=== PATIENT | female | born 1940 | race Caucasian/White ===

== ENCOUNTER → 2018-02-02 09:50 | Outpatient (CLI) | payer OTHER, SELFPAY ==
[2018-02-02 10:09] LABS: Bacteria Urine None Seen; RBC Urine None Seen (0-5/HPF)
[2018-02-02 10:47] LABS: Appearance Urine UA CLEAR; Bilirubin Urine UA NEGATIVE (NEGATIVE); Color Urine UA YELLOW; Glucose Urine UA NEGATIVE (Normal); Ketones Urine UA NEGATIVE (NEGATIVE); Leukocyte Esterase Urine UA 3+ (NEGATIVE); Nitrite Urine UA Negative (Negative); Occult Blood Urine UA NEGATIVE (Negative); Protein Urine UA NEGATIVE (Negative); Urobilinogen Urine UA 0.2 E.U./dL (0.2)
[2018-02-02 10:49] LABS: Add Manual Diff / Slide Review NO; Basophils Percent Auto 0.9 % (0-2); Eosinophils Percent Auto 0.8 % (2-4); Hematocrit 34.7 % (36-46); Hemoglobin 11.8 g/dL (12.0-16.0); Lymphocytes Percent Auto 15.2 % (25-40); Mean Corpuscular HGB Conc 33.8 % (30-36); Mean Corpuscular Hemoglobin 29.5 PG (26-34); Mean Corpuscular Volume 87.2 fL (80-100); Monocytes Percent Auto 6.3 % (3-14); Neutrophils Absolute Auto 6000 /uL (3000-5900); Neutrophils Percent Auto 76.8 % (50-75); Platelet Count 305 X10^3/uL (150-400); Red Blood Cell Count 3.99 X10^6/uL (4.0-5.2); Red Cell Distribution Width 13.4 % (11.6-14.8); White Blood Cell Count 7.9 X10^3/uL (4.5-11.0)
[2018-02-02 10:53] LABS: BUN Creatinine Ratio 29.1 (6-22); Blood Urea Nitrogen 32 mg/dL (7-17); Calcium 9.1 mg/dL (8.4-10.2); Carbon Dioxide 35 mmol/L (22-32); Chloride 101 mmol/L (98-107); Estimated Glomerular Filt Rate 48.4 mL/min (>60); Glucose 90 mg/dL (80-110); HEMOLYSIS < 15 (0-50); Potassium 3.4 mmol/L (3.4-5.1); Sodium 143 mmol/L (137-145); Uric Acid 5.8 mg/dL (2.5-6.2)
[2018-02-02 11:01] LABS: C-Reactive Protein Quant < 0.5 mg/dL (<1.0)
[2018-02-02 12:08] LABS: Erythrocyte Sedimentation Rate 16 MM/HR (0-20)
[2018-02-02 12:35] LABS: Culture Indicated Urine Cult Not Indicated; Renal Epithelial Cells Urine 5-10/HPF; Squamous Epithelial Cell Urine 5-10 /HPF; WBC Urine 10-30/HPF (0-5/HPF)
[2018-02-02 14:42] LABS: Hemoglobin A1C% w Est Avg Glu 5.7 % (4.0-6.0)
[2018-02-02 14:47] LABS: Rheumatoid Factor < 8.6 IU/mL (<12.0)
[2018-02-04 20:29] LABS: ANA Screen, IFA Negative (Negative)
== END ==
PROVIDERS: Visit Provider Orthopaedic Surgery
DX: Z01.818 Encounter for other preprocedural examination (principal); Z01.812 Encounter for preprocedural laboratory examination; N39.9 Disorder of urinary system, unspecified; R73.09 Other abnormal glucose; I10 Essential (primary) hypertension
CPT/HCPCS: 36415; 80048; 81001; 83036; 84550; 85025; 85651; 86038; 86140; 86430; 93005; 93010

== ENCOUNTER → 2018-04-26 10:10 | Outpatient (CLI) | payer OTHER, SELFPAY ==
[2018-04-26 10:19] LABS: Bacteria Urine None Seen; RBC Urine None Seen (0-5/HPF); WBC Urine None Seen (0-5/HPF)
[2018-04-26 10:29] LABS: Add Manual Diff / Slide Review NO; Basophils Percent Auto 1.2 % (0-2); Eosinophils Percent Auto 1.3 % (2-4); Hematocrit 39.6 % (36-46); Lymphocytes Percent Auto 15.3 % (25-40); Mean Corpuscular HGB Conc 32.9 % (30-36); Mean Corpuscular Hemoglobin 28.6 PG (26-34); Mean Corpuscular Volume 86.9 fL (80-100); Monocytes Percent Auto 8.1 % (3-14); Neutrophils Absolute Auto 6000 /uL (3000-5900); Neutrophils Percent Auto 74.1 % (50-75); Platelet Count 329 X10^3/uL (150-400); Red Blood Cell Count 4.56 X10^6/uL (4.0-5.2); White Blood Cell Count 8.1 X10^3/uL (4.5-11.0)
[2018-04-26 10:47] LABS: Hemoglobin A1C% w Est Avg Glu 5.8 % (4.0-6.0)
[2018-04-26 10:52] LABS: Blood Urea Nitrogen 30 mg/dL (7-17); Calcium 9.8 mg/dL (8.4-10.2); Carbon Dioxide 32 mmol/L (22-32); Chloride 98 mmol/L (98-107); Estimated Glomerular Filt Rate 54.1 mL/min (>60); Glucose 79 mg/dL (80-110); HEMOLYSIS < 15 (0-50); Potassium 3.4 mmol/L (3.4-5.1); Sodium 142 mmol/L (137-145); Uric Acid 5.2 mg/dL (2.5-6.2)
[2018-04-26 10:58] LABS: Culture Indicated Urine Cult Not Indicated; Squamous Epithelial Cell Urine 5-10 /HPF
[2018-04-26 11:00] LABS: Appearance Urine UA CLEAR; Bilirubin Urine UA NEGATIVE (NEGATIVE); Color Urine UA YELLOW; Glucose Urine UA NEGATIVE (Normal); Ketones Urine UA NEGATIVE (NEGATIVE); Leukocyte Esterase Urine UA NEGATIVE (NEGATIVE); Nitrite Urine UA NEGATIVE (Negative); Occult Blood Urine UA NEGATIVE (Negative); Protein Urine UA NEGATIVE (Negative); Rheumatoid Factor < 8.6 IU/mL (<12.0); Specific Gravity Urine UA 1.015 (1.000-1.035); Urobilinogen Urine UA 0.2 E.U./dL (0.2); pH Urine UA 7.5 (4.5-8.0)
== END ==
PROVIDERS: Family Provider Family Medicine; Visit Provider Orthopaedic Surgery
DX: Z01.818 Encounter for other preprocedural examination (principal); M25.551 Pain in right hip
CPT/HCPCS: 36415; 80048; 81001; 83036; 84550; 85025; 86430; 93005

== ENCOUNTER 2018-05-18 06:08 | Inpatient (IN) | payer OTHER, SELFPAY ==
[2018-05-03 10:57] VITALS: BMI 25.2
[2018-05-18] VITALS (12 sets, daily range): BP systolic 98–165; BP diastolic 44–68; PULSE 16–72; RESP 12–49; TEMP 36.1–36.6; O2SAT 94–100; BMI 25.6; BMI 28.6
--- NOTE | 2018-05-18 | DI.RAD.S_ITS ---
PROCEDURE: XR HIP W PEL IF DONE RT 2V INDICATIONS: RIGHT TOTAL HIP TECHNIQUE: 3 views of the hip were acquired. COMPARISON: [facility], , XR HIP W PEL IF DONE RT 2V, 05/18/2018, 14:40. FINDINGS: Spot fluoroscopic intraoperative images demonstrate right hip arthroplasty in expected alignment.Hardware appears intact. Dictated by: Nitin Arriola M.D. on 05/18/2018 at 14:57 Approved by: Nitin Arriola M.D. on 05/18/2018 at 14:58
--- NOTE | 2018-05-18 06:00 | DI.RAD.S_ITS ---
PROCEDURE: XR HIP W PEL IF DONE RT 2V INDICATIONS: post operative right hip TECHNIQUE: AP pelvis with lateral view(s) of the right hip(s). COMPARISON: [facility], CR, XR PELVIS WITH LATERAL HIP RIGHT, 01/09/2018, 10:56. [facility], CR, XR HIP W PEL IF DONE RT 2V, 05/18/2018, 10:26. FINDINGS: Bones: No fractures or dislocations. Right hip arthroplasty in expected postoperative alignment. Pelvic ring appears intact. No suspicious bony lesions. Background periarticular heterotopic ossification is unchanged Soft tissues: Overlying soft tissue postsurgical changes. IMPRESSION: Expected postoperative alignment of right hip arthroplasty. Dictated by: Nitin Arriola M.D. on 05/18/2018 at 15:00 Approved by: Nitin Arriola M.D. on 05/18/2018 at 15:01
[2018-05-18] MEDS: LACTATED RINGERS 1,000 ML 42 ML IV ×2 (06:54→10:21)
[2018-05-18] MEDS: VANCOMYCIN 1,000 MG/200 ML FROZ.PIGGY 200 MG IV (06:54)
[2018-05-18] MEDS: ACETAMINOPHEN 325 MG TABLET 975 MG PO ×3 (07:13→20:17)
[2018-05-18] MEDS: CELECOXIB 200 MG CAPSULE PO (07:14)
[2018-05-18] MEDS: PREGABALIN 75 MG CAPSULE PO (07:14)
--- NOTE | 2018-05-18 07:47 | PM.PREOP ---
Pre-operative Note Interval Note Pre-op Check: Yes History & Physical Reviewed by Physician and Yes Exam Performed Changes: No
--- NOTE | 2018-05-18 07:48 | PM.OP.1 ---
Operative Date/Time/Diagnoses Date of procedure: 05/18/18 Time of procedure: 07:48 Pre-op diagnosis: right hip OA, avn Post-op diagnosis: same Procedure & Clinicians Procedure: Right total hip arthroplasty anterior Same procedure as scheduled: Yes Indications: The patient has had progressively worsening right hip pain with radiographic changes consistent with arthritis. Non-operative management has failed and the patient has requested total hip replacement. The risks, benefits and alternatives to surgery were discussed with the patient prior to proceeding. Risks discussed included, but were not limited to, failure to relieve pain, leg length discrepancy, dislocation, stiffness, infection, nerve damage, deep venous thrombosis, pulmonary embolism, stroke, coma, heart attack, permanent paralysis and , as well as the potential need for eventual revision of the prosthetic. patient was noted to have severe avascular necrosis with marked abnormality of the femoral head and ossification in her hip abductors and marked stiffness preoperatively. 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 Some softening of the femoral bone, adequate positioning of the acetabulum and femoral component. Possible nondisplaced trochanteric injury noted on x-rays, no evidence of trochanteric instability, component instability or significant femoral fracture. Closure Type: primary Implants & Drains: [employer]hew R3 50 cup, 50 x 32 mm neutral poly, size 5 anthology, -3 by 32 femoral head Applied: drain(s) Estimated Blood Loss (mL): 250 Blood products transfused: none Procedure in detail: The patient was brought to the operating room. Patient was carefully positioned in the supine position. Time-out was performed and antibiotics were given. Anesthesia was induced. She was positioned in the on the table in order to allow hyperextension of the hip. Bilateral lower extremities were prepped and draped in a standard sterile fashion. An anterior right hip incision was made 1 fingerbreadth lateral to the anterior superior iliac spine and extended distally towards the greater trochanter. Dissection was carried out through skin and subcutaneous tissues. The skin and subcutaneous tissues were carefully injected with Lidocaine with epi. Superficial hemostasis was achieved. The fascia over the tensor fascia frank was defined and incised with a knife. Two Allis clamps were used to grasp the fascia. Tensor fascia frank was retracted laterally. A gelpi retractor was placed. Dissection was carried out down along the neck. The circumflex vessels were carefully identified and cauterized with the Aqua Mantis. There was good visualization of the femoral neck. She had an extremely stiff hip. She had about a 20 degree flexion contracture with further flexion to about 90?. The soft tissues were adherent to the underlying capsule. The tissues were meticulously mobilized. The tensor fascia frank was specifically gently mobilized off of the greater trochanter. She did have a component of a Abduction contracture. she could only be externally rotated about 10?. A Cobra was placed superior to the neck and the gluteus fibers were carefully stripped from that superior aspect of the capsule. A 2nd retractor was placed along the inferior aspect of the neck. The rectus insertion along the capsule was partially released. A 3rd retractor that was then gently placed over the rim of the acetabulum under the rectus. Capsule was carefully incised and released from the intertrochanteric line superior to the mid sagittal line and inferiorly to the mid sagittal line until the lesser trochanter was palpable. A tag stitch was placed both in the superior and inferior limb of the capsular insertion. Along the acetabulum capsule was also released up to the mid sagittal 12:00 position. A portion of the labrum was resected. There was severe adhesions in the lateral capsule especially along the insertion in the acetabulum. The lateral capsule was specifically released from the proximal femur to allow visualization of the greater trochanter sparing the gluteal muscles. A saw was used to perform an osteotomy at the level of the intertrochanteric line and the junction of the superior femoral neck leaving approximately 1 finger breath of residual inferior neck above the lesser trochanter. A 2nd cut was made along the femoral neck at the base of the head and a napkin ring of neck was removed. Corkscrew was placed in the femoral head and the head was removed. Retractors were then repositioned around the acetabulum. Residual labrum was resected and additional osteophytes were removed. Her capsule was severely contracted. We meticulously mobilized the capsule in order to allow the femur to be retractracted out of the way. A reamer that was 4 mm below the templated size was placed by hand in the acetabulum and it was reamed to centralize the acetabulum. It was then reamed up to 2 under the templated size and fluoroscopy was brought in to confirm the position of the reaming and depth of reaming. I reamed 1 under the anticipated size. A trial cup was placed and noted that it was appropriately sized and fluoroscopy confirmed position and depth. The component was open and inserted without difficulty fluoroscopic imaging was used to confirm that the cup had been adequately seated and was well positioned. She Had significant softening of her acetabulum and a screw was placed in order to further stabilize the cup. There was some superolateral deficiency but there was adequate coverage of the cup the cup was specifically tested and noted to be stable. Neutral poly trial liner was placed. The cup was tested and noted to be stable. Attention was then directed to the femur. The femur was gently hyperextended additional capsular release was performed in order to allow adequate visualization of the proximal femur with elevation of the femur. The capsule was severely contracted. I mobilized the capsule and specifically released to the bare spot on the greater trochanter and to the piriformis. A bone hook was used to mobilize The proximal small femur and to check the capsular release. She had an abduction contracture and it was difficult to adduct her past neutral. The tensor was also mobilize some proximally in order to allow safe retraction and further mobilization of the femur. Patient was placed in a hyperextended slightly adducted position with maximum external rotation. Box osteotome was used to check for any residual neck as well as sclerotic bone along the trochanter. [place] pepper was placed in the femur. the initial chili pepper was checked with fluoroscopy because it was difficult to insert. It was going into varus. The femur was elevated as much as possible and adduct did as much as possible as well as externally rotated. The chili pepper was used to specifically broach laterally in order to avoid varus. Additional broaching was performed. Canal finder was used to determine the alignment of the canal and position. Size 1 broach was placed. I checked both the position of the chili pepper as well as a size 1 broach to make sure that the femoral pathway was appropriate. The canal was then appropriately broached up to the templated size as long as there was adequate stability of the broach and serial advancement of the broach without excessive impingement. Specific attention was directed at avoiding varus attempting to direct the distal aspect of the broach more anteriorly and avoiding excessive anteversion. Trial reduction showed acceptable range of motion, good stability, no posterior impingement, roman catholic of leg length and appropriate lateral shuck. I also hyperflexed the hip and checked that there was no impingement anteriorly and there was good stability with flexion, abduction and internal rotation. the position of the broach was checked in neutral and internal and external rotation. On 1 radiographic view it looks like there might be a small crack in the greater trochanter. Evaluation of the bone did not show a displaced fracture but we did get the cerclage wire in case we needed it. Pulse lavage was used for irrigation. Final neutral poly was placed without difficulty. Marcaine and Exparel were injected. The stem was placed without difficulty. Repeat trial reduction and x-ray showed acceptable overall position, length, and no conclusive evidence of the femoral fracture. Final head was placed. Wound was meticulously irrigated with normal saline. The hip was reduced and additional Exparel and Marcaine were injected. additional fluoroscopy was used to make sure that there was no fracture and the bone was specifically tested and noted to be stable. The capsule was closed with interrupted nonabsorbable sutures. The fascia of the tensor was closed with interrupted and running Vicryl. No drain was placed. Any tensor fascia frank muscle that appeared to be contused or injured which was a minimal amount was carefully resected. Capsule around the tensor was injected with Exparel and Marcaine. The skin was closed with barbed stitches for the subcutaneous tissue and skin. We also used surgical glue. The wound was dressed sterilely. Brief Betadine soak was also used and was meticulously irrigated with normal saline. Patient was transferred to recovery room in satisfactory condition. Complications: none Condition: stable Disposition: Acute Care Plan for aftercare: The patient will be maintained on a standard total hip replacement protocol with weight bearing as tolerated and anterior hip precautions. The patient will receive Aspirin and sequential compression devices for DVT prophylaxis. The patient will be discharged home when safe for the home environment.
[2018-05-18] MEDS: CEFAZOLIN 2 GM/100 ML FROZ.PIGGY IV ×3 (08:00→20:17)
--- NOTE | 2018-05-18 08:38 | SUR.OPER ---
Supine, head on pillow, torso on pink pad positioner. Padded safety belt to torso. Iliac crest at flex of table. Gel roll under right hip. Both arms in foam wrap secured on arm boards <90 degrees abduction. Bilateral legs in surgeon control.
[2018-05-18] MEDS: LIDOCAINE 1% W/EPI INJ 20 ML INJ (08:49)
[2018-05-18] MEDS: BUPIVACAINE 0.25% W/ EPI VIAL 50 ML INJ (08:50)
[2018-05-18] MEDS: BUPIVACAINE LIPOSOME 266 MG/20 ML VIAL INJ (08:50)
[2018-05-18] MEDS: POVIDONE-IODINE 15 ML, SODIUM CHLORIDE 0.9% 250 ML TOP (08:51)
--- NOTE | 2018-05-18 14:02 | SUR.PHASEI ---
reported off to Kemi KELLY
--- NOTE | 2018-05-18 15:33 | PC.NURSE ---
POST OP ARRIVAL - To room at 1455, awake, states no discomfort, pt is able to move and flex r foot and leg, sensation present from foot to approx mid r thigh, aquacell dsg cdi, ra 98%, hr jennifer at 48, scds on.
[2018-05-18] MEDS: LACTATED RINGERS 1,000 ML 125 ML IV (15:36)
[2018-05-18] MEDS: INFLUENZA VACCINE 0.5 ML SYRINGE IM (17:02)
--- NOTE | 2018-05-18 18:00 | PT.IIE ---
Current Diagnoses Pain in right hip (05/18/18) Surgery Performed Operation Date: 05/18/18 07:45 Actual Procedures p Right Total Hip Arthroplasty/Anterior Approach(Right) - Mag Dickerson MD Surgical History (Last Updated 05/03/18 @ 11:16 by Miroslava Saucedo, RN) History of colonoscopy (Acute) Hx of adenoidectomy (Acute) Hx of eye surgery (Acute ~1999) Medical History (Last Updated 05/03/18 @ 11:14 by Miroslava Saucedo RN) Graves' disease (Acute) HTN (hypertension) (Acute) Heartburn (Acute) Hx of radioactive iodine thyroid ablation (Acute) Hypothyroidism (Acute) Pneumonia (Acute) Physical Therapy Inpatient Evaluation/Re-Eval M1 PT/OT-IP Prior Functional Status Start: 05/18/18 17:34 Freq: NEEDED Status: Active Protocol: Document 05/18/18 17:00 NFW (Rec: 05/18/18 18:00 NFW [id number]) Medical Review Prior Functional Status Medical History Reviewed Yes Diet/Fluid Consistency Regular Communication Pt alert, pleasant, answered all questions appropriately. Mobility and Gait Prior to admittance pt utilized SPC in ambulation. Activities of Daily Living and IADL's Prior to admittance, pt independent in ADLs and IADL's . Prior Functional Level (Other details) Pt's hobby is rubber stamping which she has been able to continue. Pt continued with regular activities around the home including cooking. Social History Household Members spouse Living Arrangements Half-Way Facility Number of Floors (Floors) One Floor Home Environment Standard Height Toilet Walk in Shower Built-In Shower Seat Home Equipment Front Wheel Walker Straight Cane Raised Toilet Seat w/Armrests Home Health Lpn Grab Bars In Shower Employment Status Retired M2 PT-IP Current Condition Start: 05/18/18 17:34 Freq: NEEDED Status: Active Protocol: Document 05/18/18 17:00 NFW (Rec: 05/18/18 18:00 NFW [id number]) Physical Therapy Current Condition Current Condition Evaluation Date 05/18/18 Treatment Diagnosis s/p Anterior TRE Rt. Onset Date 05/18/18 Precautions Anterior Hip Precautions No Hip Extension No Hip External Rotation Other Precautions Necessity of staying active, guided in HEP and walking program. Listening to when she is in pain or fatigued. Weight Bearing Status Weight Bearing Status Full Weight Bearing M3 PT-IP Subjective Start: 05/18/18 17:34 Freq: NEEDED Status: Active Protocol: Document 05/18/18 17:00 NFW (Rec: 05/18/18 18:00 NF [id number]) Subjective Physical Therapy Visit Type Type Initial Evaluation Visit Start Time 16:00 Visit Stop Time 17:00 Total Visit Minutes 60 Notes Pt's present during treatment. Pt and receptive with many questions. Number of HVAC PROJECT ENGINEER Visits 0 Physical Therapy Visit Comments Patient Comments Pleased that she has no pain. Patient Goals Home with . Therapy Pain Assessment Pain When Pain Assessed After Treatment Pain Present Pain Present Denied Pain M4 PT-IP Mobility and Gait Start: 05/18/18 17:34 Freq: NEEDED Status: Active Protocol: Document 05/18/18 17:00 NFW (Rec: 05/18/18 18:00 [facility] [id number]) PT-Bed Mobility Assessment Rolling Level of Assist Contact Guard Assistance 1 Person Assistance Supine to Sit Supine to Sit Minimal Assistance 1 Person Assistance Scooting Scooting to Edge of Bed Contact Guard Assistance PT-Transfer Assessment Sit to and From Stand Sit to and from Stand Contact Guard Assistance 1 Person Assistance Use of Upper Extremities Equipment Transfer Assistive Device Gait Belt Front Wheeled Walker Orthotic/Prosthetic Devices or Brace: No Transfers Transfer Destination Chair Bedside Commode Transfer Ability Level of Assist Minimal Assistance 1 Person Assistance Use of Upper Extremities Comments Mobility Comments VC prior to performing activity, motion executed nicely. Min assist in protecting RLE when going from supine to sitting at EOB. Gait Assessment Gait Gait Assistance Required: Contact Guard Assist 1 Person Assist Distance (Feet) 20 Able to Maintain Weight Bearing Status Yes During Gait Assistive Devices Assistive Device Gait Belt Front Wheeled Walker Orthotic/Prosthetic Devices or Brace: No Gait Deviations General Gait Pattern Decreased Stride Length Decreased Feet Clearance Factors Limiting Gait Function Factors Limiting Gait Function Decreased Activity Tolerance Decreased Sensation Decreased Strength Limited Range of Motion Comments Gait Comments Pt ambulated with LE in ER, R> L. Instructed on gradually bringing toes forward. PT-Balance Assessment Sitting Balance and Reactions Static Sitting Balance Ability Good Dynamic Sitting Balance Ability Good Standing Balance and Reactions Static Standing Balance Ability Good Dynamic Standing Balance Ability Good M5 PT-IP Objective Assessments Start: 05/18/18 17:34 Freq: NEEDED Status: Active Protocol: Document 05/18/18 17:00 NFW (Rec: 05/18/18 18:00 [facility] [id number]) Orientation Orientation/Cognition Level of Alertness Alert Language Function Ability No Deficits Noted Safety Awareness Understands Safety Issues Memory Description No Deficits Noted Gross Range of Motion Upper Extremity ROM Assessment Within Functional Limits Sensation Assessment Comments Sensation Comments Has some residual loss on sensation anterior and lateral aspect right hip. Muscle Tone Muscle Tone WNL Yes M6 PT-IP Treatment Start: 05/18/18 17:34 Freq: NEEDED Status: Active Protocol: Document 05/18/18 17:00 NFW (Rec: 05/18/18 18:00 [facility] [id number]) Physical Therapy Treatment Exercises Exercises Ankle Pumps Gluteal Sets Quad Sets Heel Slides Education Education Provided Precautions Weight Bearing Status Post-Op Packet Safety M7 PT-IP Assessment and Plan Start: 05/18/18 17:34 Freq: NEEDED Status: Active Protocol: Document 05/18/18 17:00 NFW (Rec: 05/18/18 18:00 [facility] [id number]) PT Summary Assessment and Plan Potential Rehabilitation Potential Excellent Status of Condition at Evaluation Evolving Summary Impairments Strength Sensation Bed Mobility Transfers Gait Activity Tolerance Progress Towards Goals Progressing Toward Goals Assessment Summary Pt s/p rt. Ant TRE this am. Pleased with little pain and her ability to move without pain. She is receptive and follows instructions closely. She was able to follow through with exercises with good form and pace. She has some residual post surgical loss of sensation in RLE mildly affecting her gait/ balance. BP before activity 135/69, Pulse 53, O2 96 BP sitting 139/58; Pulse 56; O2 96 BP post activity 125/77, Pulse 59; O2 95. Goals Bed Mobility Goal Independent Transfer Goal Standby Assistance Gait Goal Standby Assistance Front Wheel Walker Gait Distance 100' Days to Meet Goals 2 Frequency of Treatment Frequency Of Treatment Twice a Day Treatment Plan Physical Therapy Treatment Plan Bed Mobility Training Transfer Training Gait Training Therapeutic Exercise Balance Retraining Post Op Education Other Recommendations and Next Treatment Bed mobilities, ambulation, Focus exercise review. Recommendations To Nursing Amount of Assist Needed 1 Person Assist Discharge Recommendations PT Discharge Recommendations Home with Assistance Other Discharge Recommendations Home with . very supportive.
--- NOTE | 2018-05-18 18:37 | PC.NURSE ---
evening shift note- patient arrived to room at 1453 just prior to shift change. patient alert and oriented ahnd able to make needs known to staff. patient oriented to bed and bed controls, room, lights, bathroom, menu, phone, and call ward/tv remote. admission questions completed. physical assessment done. safety measures in place. call ward and phone within reach. will continue to monitor.
[2018-05-18] MEDS: DOCUSATE 100 MG CAPSULE PO (20:18)
[2018-05-18] MEDS: ASPIRIN EC 81 MG TABLET PO (20:18)
--- NOTE | 2018-05-18 23:49 | PC.NURSE ---
Deputy County Attorney Note: 2345: Awake, assisted to turn and repostion. Vital signs stable. Pt denies pain at this time. Dressing to rt hip is cdi. IV in place in lt hand, and LR is infusing at 125cc/hr. SCDs on.
[2018-05-19] MEDS: CEFAZOLIN 2 GM/100 ML FROZ.PIGGY IV (04:49)
[2018-05-19] MEDS: LACTATED RINGERS 1,000 ML 125 ML IV ×2 (04:55→08:46)
[2018-05-19] MEDS: LEVOTHYROXINE 100 MCG TABLET PO (04:59)
[2018-05-19 05:59] VITALS: BP 101/57; PULSE 68; RESP 16; TEMP 36.7; O2SAT 99
[2018-05-19 06:18] LABS: Hematocrit 29.2 % (36-46); Hemoglobin 9.9 g/dL (12.0-16.0)
[2018-05-19 07:56] VITALS: BP 108/55; PULSE 87; RESP 18; TEMP 36.6; O2SAT 99
[2018-05-19] MEDS: ACETAMINOPHEN 325 MG TABLET 975 MG PO ×2 (08:45→14:05)
[2018-05-19] MEDS: DOCUSATE 100 MG CAPSULE PO (08:45)
[2018-05-19] MEDS: ASPIRIN EC 81 MG TABLET PO (08:46)
--- NOTE | 2018-05-19 09:55 | PT.IPTN ---
Current Diagnoses Pain in right hip (05/18/18) Surgery Performed Operation Date: 05/18/18 07:45 Actual Procedures p Right Total Hip Arthroplasty/Anterior Approach(Right) - Mag Dickerson MD Physical Therapy Treatment Note M2 PT-IP Current Condition Start: 05/18/18 17:34 Freq: NEEDED Status: Active Protocol: Document 05/18/18 17:00 NFW (Rec: 05/18/18 18:00 NFW [id number]) Physical Therapy Current Condition Current Condition Evaluation Date 05/18/18 Treatment Diagnosis s/p Anterior TRE Rt. Onset Date 05/18/18 Precautions Anterior Hip Precautions No Hip Extension No Hip External Rotation Other Precautions Necessity of staying active, guided in HEP and walking program. Listening to when she is in pain or fatigued. Weight Bearing Status Weight Bearing Status Full Weight Bearing M3 PT-IP Subjective Start: 05/18/18 17:34 Freq: NEEDED Status: Active Protocol: Document 05/19/18 10:20 GGD (Rec: 05/19/18 11:05 GGD [id number]) Subjective Physical Therapy Visit Type Type Treatment Note Visit Start Time 09:55 Visit Stop Time 10:20 Total Visit Minutes 25 Number of LINEN CONTROLLER Visits 1 Physical Therapy Visit Comments Patient Comments Pt states she want's to go home today. Therapy Pain Assessment Pain When Pain Assessed During Mobility Pain Present Pain Present Pain Reported M4 PT-IP Mobility and Gait Start: 05/18/18 17:34 Freq: NEEDED Status: Active Protocol: Document 05/19/18 10:20 GGD (Rec: 05/19/18 11:05 GGD [id number]) PT-Bed Mobility Assessment Sit to Supine Sit to Supine Standby Assistance Bedrails Scooting Scooting to Edge of Bed Standby Assistance PT-Transfer Assessment Sit to and From Stand Sit to and from Stand Standby Assistance Use of Upper Extremities Equipment Transfer Assistive Device Gait Belt Front Wheeled Walker Orthotic/Prosthetic Devices or Brace: No Transfers Transfer Destination Bed Transfer Ability Level of Assist Contact Guard Assistance Use of Upper Extremities Gait Assessment Gait Gait Assistance Required: Contact Guard Assist 1 Person Assist Distance (Feet) 100 Able to Maintain Weight Bearing Status Yes During Gait Assistive Devices Assistive Device Gait Belt Front Wheeled Walker Orthotic/Prosthetic Devices or Brace: No Gait Deviations General Gait Pattern Decreased Stride Length Decreased Feet Clearance Factors Limiting Gait Function Factors Limiting Gait Function Decreased Activity Tolerance Decreased Sensation Decreased Strength Limited Range of Motion Comments Gait Comments Pt needed min cues for gait pattern M5 PT-IP Objective Assessments Start: 05/18/18 17:34 Freq: NEEDED Status: Active Protocol: Document 05/18/18 17:00 NFW (Rec: 05/18/18 18:00 NFW [id number]) Orientation Orientation/Cognition Level of Alertness Alert Language Function Ability No Deficits Noted Safety Awareness Understands Safety Issues Memory Description No Deficits Noted Gross Range of Motion Upper Extremity ROM Assessment Within Functional Limits Sensation Assessment Comments Sensation Comments Has some residual loss on sensation anterior and lateral aspect right hip. Muscle Tone Muscle Tone WNL Yes M6 PT-IP Treatment Start: 05/18/18 17:34 Freq: NEEDED Status: Active Protocol: Document 05/19/18 10:20 GGD (Rec: 05/19/18 11:05 GGD [id number]) Physical Therapy Treatment Exercises Exercises Ankle Pumps Gluteal Sets Quad Sets Heel Slides Education Education Provided Precautions Safety M7 PT-IP Assessment and Plan Start: 05/18/18 17:34 Freq: NEEDED Status: Active Protocol: Document 05/19/18 10:20 GGD (Rec: 05/19/18 11:05 GGD [id number]) PT Summary Assessment and Plan Summary Assessment Summary Pt progressing with mobility. She needed less assist, but needed cues for hip precautions. She safe for home D/C when medically stable. Frequency of Treatment Frequency Of Treatment Twice a Day Treatment Plan Other Recommendations and Next Treatment Bed mobilities, ambulation, Focus exercise review. Recommendations To Nursing Amount of Assist Needed 1 Person Assist Discharge Recommendations PT Discharge Recommendations Home with Assistance
--- NOTE | 2018-05-19 10:48 | PM.DS.1 ---
History of Present Illness Date Patient Seen: 05/19/18 Time Patient Seen: 10:48 Chief complaint: total hip arthroplasty right [id number] Narrative: Hospital day 2, postop day 1 following right anterior total hip arthroplasty by Dr. Dickerson. Patient is thus with path patient. Doing well at this time. States she did get some rest last night. Using Tylenol for pain. Patient is desiring to go home today. Discharge Providers Date of admission: 05/18/18 06:08 Consults: 05/18/18 06:00 Consult to Anesthesiology Routine Comment: Consulting Provider: Anesthesiologist Reason for consultation: Regional block for post operative pain control 05/18/18 15:01 Consult to Discharge Planning Routine Comment: Consult to Physical Therapy Evaluate & Treat Comment: Physician Instructions: post op TRE protocol Consult to Respiratory Therapy Evaluate & Treat Comment: Physician Instructions: Evaluate and treat Discharge provider: Black Zavaleta PA-C Discharge Date: 05/19/18 Summary Discharge Diagnosis: Status post right anterior total hip arthroplasty Hospital Course: Patient brought to hospital on 05/18/2018 for above-noted surgery. She remained stable postoperatively. Progressed with physical therapy. Pain control with Tylenol. She is scheduled to go to [facility] PT Status at Discharge Cognitive/behavioral status at discharge: Alert oriented no acute distress. Functional status at discharge: uses cane/walker Overall status at discharge: patient is progressing back to baseline Time Spent with Patient Less than 30 minutes Exam Vital Signs (past 8 hours): - 05/19/18 05:59 05/19/18 07:56 Temperature 98.0 F 97.8 F Pulse Rate 68 87 Respiratory Rate 16 18 Blood Pressure 101/57 L 108/55 L Pulse Oximetry 99 99 Oxygen Delivery Method Room Air Oxygen Flow Rate 0 Narrative Exam Narrative: Legs. Aquacel dressing to right anterior hip is dry without drainage or inflammation. No calf pain or swelling. Pulses symmetrical. Patient able to fire her quad. Objective Labs Result Diagrams: 05/19/18 05:45 Labs: Laboratory Results - last 24 hr 05/19/18 05:45 Hgb 9.9 L Hct 29.2 L Discharge Plan Discharge Plan Patient Disposition: Home Discharge comment: Discharged home today after cleared by physical therapy. Patient is a sweet path patient and does have pain medications at home. Schedule to go to [facility] PT. Discharge Med Rec/Prescriptions Prescriptions: New acetaminophen 325 mg Tablet 975 mg PO TID Qty: 30 RF: 0 aspirin 81 mg Tablet,Delayed Release (Dr/Ec) 81 mg PO BID Qty: 60 RF: 0 Continue triamterene-hydrochlorothiazid 75-50 mg Tablet 1 tab PO DAILY RF: 0 vit C-vit [id number]-ggc-om-3 [Ocuvite] 147-14-5-150 vi-hmqi-gj-mg Capsule 1 cap PO BID RF: 0 levothyroxine 100 mcg Capsule 100 mcg PO DAILY RF: 0 naproxen sodium [Aleve] 220 mg Capsule 220 mg PO BID PRN (Reason: pain) RF: 0 multivitamin Tablet 1 tab PO DAILY RF: 0 vitamin B complex [B-Complex] Tablet 1 tab PO DAILY RF: 0 Discontinued aspirin 81 mg Tablet,Delayed Release (Dr/Ec) 81 mg PO BEDTIME RF: 0 Provider Discharge Instructions Diet: Diet as Tolerated Activity: Ambulate as tolerated. Patient given anterior total hip precautions. Other treatments: Take aspirin 81 mg 1 b.i.d. x4 weeks postop. Skin/Wound/Dressing Care Report to your healthcare provider any signs of infection, such as:: chills, fever, night sweats, increased pain, unusual drainage and unusual redness Visit Report/Discharge Packet Instructions: DI for Hip Replacement Discharge Data Attending Provider: Mag Dickerson Admit Date/Time: 05/18/18 06:08 Quality VTE Deep Vein Thrombosis/Pulmonary Embolism Present on Admission: No
--- NOTE | 2018-05-19 10:51 | P.DS_ITS ---
History of Present Illness Date Patient Seen: 05/19/18 Time Patient Seen: 10:48 Chief complaint: total hip arthroplasty right [id number] Narrative: Hospital day 2, postop day 1 following right anterior total hip arthroplasty by Dr. Dickerson. Patient is thus with path patient. Doing well at this time. States she did get some rest last night. Using Tylenol for pain. Patient is desiring to go home today. Discharge Providers Date of admission: 05/18/18 06:08 Consults: 05/18/18 06:00 Consult to Anesthesiology Routine Comment: Consulting Provider: Anesthesiologist Reason for consultation: Regional block for post operative pain control 05/18/18 15:01 Consult to Discharge Planning Routine Comment: Consult to Physical Therapy Evaluate & Treat Comment: Physician Instructions: post op TRE protocol Consult to Respiratory Therapy Evaluate & Treat Comment: Physician Instructions: Evaluate and treat Discharge provider: Black Zavaleta PA-C Discharge Date: 05/19/18 Summary Discharge Diagnosis: Status post right anterior total hip arthroplasty Hospital Course: Patient brought to hospital on 05/18/2018 for above-noted surgery. She remained stable postoperatively. Progressed with physical therapy. Pain control with Tylenol. She is scheduled to go to [facility] PT Status at Discharge Cognitive/behavioral status at discharge: Alert oriented no acute distress. Functional status at discharge: uses cane/walker Overall status at discharge: patient is progressing back to baseline Time Spent with Patient Less than 30 minutes Exam Vital Signs (past 8 hours): - 05/19/18 05:59 05/19/18 07:56 Temperature 98.0 F 97.8 F Pulse Rate 68 87 Respiratory Rate 16 18 Blood Pressure 101/57 L 108/55 L Pulse Oximetry 99 99 Oxygen Delivery Method Room Air Oxygen Flow Rate 0 Narrative Exam Narrative: Legs. Aquacel dressing to right anterior hip is dry without drainage or inflammation. No calf pain or swelling. Pulses symmetrical. Patient able to fire her quad. Objective Labs Result Diagrams: 05/19/18 05:45 Labs: Laboratory Results - last 24 hr 05/19/18 05:45 Hgb 9.9 L Hct 29.2 L Discharge Plan Discharge Plan Patient Disposition: Home Discharge comment: Discharged home today after cleared by physical therapy. Patient is a sweet path patient and does have pain medications at home. Schedule to go to [facility] PT. Discharge Med Rec/Prescriptions Prescriptions: New acetaminophen 325 mg Tablet 975 mg PO TID Qty: 30 RF: 0 aspirin 81 mg Tablet,Delayed Release (Dr/Ec) 81 mg PO BID Qty: 60 RF: 0 Continue triamterene-hydrochlorothiazid 75-50 mg Tablet 1 tab PO DAILY RF: 0 vit C-vit [id number]-nkwfwp-asx-om-3 [Ocuvite] 563-54-7-150 ib-omim-cc-mg Capsule 1 cap PO BID RF: 0 levothyroxine 100 mcg Capsule 100 mcg PO DAILY RF: 0 naproxen sodium [Aleve] 220 mg Capsule 220 mg PO BID PRN (Reason: pain) RF: 0 multivitamin Tablet 1 tab PO DAILY RF: 0 vitamin B complex [B-Complex] Tablet 1 tab PO DAILY RF: 0 Discontinued aspirin 81 mg Tablet,Delayed Release (Dr/Ec) 81 mg PO BEDTIME RF: 0 Provider Discharge Instructions Diet: Diet as Tolerated Activity: Ambulate as tolerated. Patient given anterior total hip precautions. Other treatments: Take aspirin 81 mg 1 b.i.d. x4 weeks postop. Skin/Wound/Dressing Care Report to your healthcare provider any signs of infection, such as:: chills, fever, night sweats, increased pain, unusual drainage and unusual redness Visit Report/Discharge Packet Instructions: DI for Hip Replacement Discharge Data Attending Provider: Mag Dickerson Admit Date/Time: 05/18/18 06:08 Quality VTE Deep Vein Thrombosis/Pulmonary Embolism Present on Admission: No
--- NOTE | 2018-05-19 10:57 | PC.NURSE ---
Addendum entered by Meme Dias R.N. 05/19/18 14:43: DC - after phys therapy, reviewed dc instructions with pt and spouse, no scripts, given 975mg tylenol prior to discharge for mild discomfort, discussed tylenol limitations with pt and spouse, assisted with clothing, crop quantitative geneticist tsf to wc and taken to spouse's car. Original Note: Addendum entered by Meme Dias R.N. 05/19/18 13:02: MS/PAIN - spouse arrived, pt rosio lunch, continues w/pain 2 on scale 0/10 and up to bsc w/fww, pericare performed, brief changed and ret to bed, spouse req addl PT session after lunch for reinforcement, phys therapy notified. Original Note: AM NOTE - assist x 1 person w/fww up to chair for breakfast, described r hip discomfort as stiffness, +cms and no numbness rle, aquacell dsg cdi, no nausea, trace pedal edema, given scheduled tylenol and discussed pain mgt and medications available, phys therapy in and cleared.
[2018-05-19 11:15] VITALS: BP 122/52; PULSE 70; RESP 18; TEMP 36.7; O2SAT 99
--- NOTE | 2018-05-19 13:30 | PT.IPTN ---
Current Diagnoses Pain in right hip (05/18/18) Surgery Performed Operation Date: 05/18/18 07:45 Actual Procedures p Right Total Hip Arthroplasty/Anterior Approach(Right) - aMg Dickerson MD Physical Therapy Treatment Note M2 PT-IP Current Condition Start: 05/18/18 17:34 Freq: NEEDED Status: Active Protocol: Document 05/18/18 17:00 NFW (Rec: 05/18/18 18:00 NFW [id number]) Physical Therapy Current Condition Current Condition Evaluation Date 05/18/18 Treatment Diagnosis s/p Anterior TRE Rt. Onset Date 05/18/18 Precautions Anterior Hip Precautions No Hip Extension No Hip External Rotation Other Precautions Necessity of staying active, guided in HEP and walking program. Listening to when she is in pain or fatigued. Weight Bearing Status Weight Bearing Status Full Weight Bearing M3 PT-IP Subjective Start: 05/18/18 17:34 Freq: NEEDED Status: Active Protocol: Document 05/19/18 13:30 GGD (Rec: 05/19/18 14:41 GGD [id number]) Subjective Physical Therapy Visit Type Type Treatment Note Visit Start Time 13:15 Visit Stop Time 13:30 Total Visit Minutes 15 Number of PLUMBERS AND TOP HELPERS Visits 2 Physical Therapy Visit Comments Patient Comments Pt feeling better. Therapy Pain Assessment Pain When Pain Assessed During Mobility Pain Present Pain Present Pain Reported M4 PT-IP Mobility and Gait Start: 05/18/18 17:34 Freq: NEEDED Status: Active Protocol: Document 05/19/18 13:30 GGD (Rec: 05/19/18 14:41 GGD [id number]) PT-Bed Mobility Assessment Supine to Sit Supine to Sit Standby Assistance Bedrails Scooting Scooting to Edge of Bed Standby Assistance PT-Transfer Assessment Sit to and From Stand Sit to and from Stand Standby Assistance Use of Upper Extremities Equipment Transfer Assistive Device Gait Belt Front Wheeled Walker Orthotic/Prosthetic Devices or Brace: No Transfers Transfer Destination Bed Transfer Ability Level of Assist Contact Guard Assistance Use of Upper Extremities Gait Assessment Gait Gait Assistance Required: Contact Guard Assist 1 Person Assist Distance (Feet) 50 Able to Maintain Weight Bearing Status Yes During Gait Assistive Devices Assistive Device Gait Belt Front Wheeled Walker Orthotic/Prosthetic Devices or Brace: No Gait Deviations General Gait Pattern Decreased Stride Length Decreased Feet Clearance Factors Limiting Gait Function Factors Limiting Gait Function Decreased Activity Tolerance Decreased Sensation Decreased Strength Limited Range of Motion Comments Gait Comments Pt needed min cues for gait pattern M5 PT-IP Objective Assessments Start: 05/18/18 17:34 Freq: NEEDED Status: Active Protocol: Document 05/18/18 17:00 NFW (Rec: 05/18/18 18:00 NFW [id number]) Orientation Orientation/Cognition Level of Alertness Alert Language Function Ability No Deficits Noted Safety Awareness Understands Safety Issues Memory Description No Deficits Noted Gross Range of Motion Upper Extremity ROM Assessment Within Functional Limits Sensation Assessment Comments Sensation Comments Has some residual loss on sensation anterior and lateral aspect right hip. Muscle Tone Muscle Tone WNL Yes M6 PT-IP Treatment Start: 05/18/18 17:34 Freq: NEEDED Status: Active Protocol: Document 05/19/18 13:30 GGD (Rec: 05/19/18 14:41 GGD [id number]) Physical Therapy Treatment Exercises Exercises Ankle Pumps Gluteal Sets Quad Sets Heel Slides Education Education Provided Precautions M7 PT-IP Assessment and Plan Start: 05/18/18 17:34 Freq: NEEDED Status: Active Protocol: Document 05/19/18 13:30 GGD (Rec: 05/19/18 14:41 GGD [id number]) PT Summary Assessment and Plan Summary Assessment Summary Pt improving with mobility. She needed less assist for bed mobility. She did need cues with gait for hip precautions. Pt safe for D/C home when medically stable. Frequency of Treatment Frequency Of Treatment Twice a Day Treatment Plan Other Recommendations and Next Treatment Bed mobilities, ambulation, Focus exercise review. Recommendations To Nursing Amount of Assist Needed 1 Person Assist Discharge Recommendations PT Discharge Recommendations Home with Assistance
--- NOTE | 2018-05-19 13:55 | CM.DANOTE ---
Discharge Planning/Care Management CM Discharge Assessment Start: 05/19/18 13:52 Freq: Status: Active Protocol: Document 05/19/18 13:52 (Rec: 05/19/18 13:55 [id number]) Discharge Planning Assessment Assigned Rn Family Practice SANYA Abdullahi Advance Directives? Yes Advance Directives on File No History Provided By Patient Medical Record Has Patient been admitted in last 30 No days? Prior Living Arrangements Intermediate Facility Household Members spouse Type of transporation used prior to Drives own vehicle admit Independent with ADL's Yes Is patient alert and oriented? Yes Caregiver for Another No Patient/Family Preference OP PT Therapy Barriers to Discharge No Discharge Plan Home Community Services Physical Therapy Whiteboard Updated in Patient Room with Yes name and ext. # of Rn Family Practice Comment Patient to discharge home today. Patient agreeable and will have spouse provide transportation. Please Provide Date Initial DC 05/19/18 Assessment Was Performed Pre-Anesthesia Assessment Start: 05/03/18 10:57 Freq: Status: Complete Protocol: Document 05/03/18 10:57 CAB (Rec: 05/03/18 11:30 CAB [id number]) Pre-Anesthesia Assessment Patient Information Reviewed Via Phone Assessment Assessment Completed With Patient Lab Results BMP/CMP CBC EKG Urinalysis Comment Labs @ [facility] 04/28/18, EKG @ [facility] Primary Care Provider Cyndee Laureano Seen Specialist in Last 12 Months Yes Specialist Seen Orthopedist Other Comment GI Primary Language Slovak Height 170.18 cm Weight 73.028 kg Body Mass Index (BMI) 25.2 Hearing Ability Normal Visual Assist Magnifying Glass Dentition Type Teeth, Natural Present Barriers to Learning None Hx Anesthesia Reactions No Hx Family Anesthesia Reaction No Hx Malignant Hyperthermia No Hx Blood Transfusions No Anesthesia Review Requested No Biomed Tech No alcohol intake frequency a few times a week Smoking Status Never smoker Substance Use Type does not use Pain Present Pain Reported Musculoskeletal Symptoms Abnormal Gait Difficulty Walking Joint Pain History of Falling (Recent or History of No ) Patient is completely paralyzed or No completely immobile Prosthesis or Orthotic Device Cane Mental Status Oriented to own ability Is patient on oxygen? No Does patient have CORREIA/SOB No Hx Sleep Apnea No Suspected Sleep Apnea No Currently Taking a Beta Shahid No Can You Climb a Flight of Stairs Without Yes SOB Hx Chest Pain No Hx SOB No Hx Syncope or Dizziness No Anti-Coagulant Therapy No Has a Section Chief No Cardiac Testing No Hx Pacemaker/ICD No Pacemaker Rep Required? No Cardiac Clearance Received Not Applicable Diet Type At Home Regular dysphagia No Bladder Pattern Nocturia Urinary Catheter Present No Hx Urinary Self Catheterization No Diabetes No Patient No Lactating No Hx Drug Resistant Organism No Presence of External or Internal Medical No Devices Have you traveled outside the [facility] States in the last 30 days? Marital Status Lives With spouse Prior Living Arrangements House Number of Floors (Floors) One Floor Number of Stairs To Enter/Railing? none Support System Child/Children Angélica/God Friend(s) Spouse Does the Patient Have Assistance After Yes Surgery Patient Discharge Plan Description Return Home Comment Pt advised same day or next day length of stay per surgeon 's office Feels Safe in Current Environment Yes Been Physically Hurt or Threatened By a No Person in Current Environment Do you have thoughts of harming yourself None or others? Are you currently considering suicide? No Do you have a plan to hurt yourself or No Plan others? Do You Have Any Spiritual Beliefs That No May Affect Your HC Choices? Do You Have Any Cultural Practices That No May Affect Your HC Choices? Spiritual Referral None Comment Caodaism Who Can We Speak to About Patient's Care Family, friends Identifying Code for Release of Patient Declines to issue Information Health Care Proxy/Next of Kin Marc () Health Care Proxy Emergency Contact Name Marc () Emergency Contact Advance Directives? Yes: Living will Advance Directives on File No Requested Patient Bring Advanced Yes Directives DOS Power of Industrial Gas Servicer Supervisor Yes Power of Industrial Gas Servicer Supervisor Name Marc () Power of Industrial Gas Servicer Supervisor PAC Instructions Do not shave/clip surgical site Durable medical equipment Medications to take/avoid Nasal antibiotic No ETOH/petroleum product on skin DOS NPO Pre-surgical wash Sturdy shoes/comfortable clothes Do not bring valuables and remove jewelry
== END 2018-05-19 14:48 | disposition home or self-care (01) | DRG 470 ==
PROVIDERS: Admitting Provider Orthopaedic Surgery; Family Provider Family Medicine; Visit Provider Orthopaedic Surgery
PROC: 0SR902Z Replacement of Right Hip Joint with Metal on Polyethylene Synthetic Substitute, Open Approach (ICD-10-PCS; CPT 27130; principal; 2018-05-18 07:45)
DX: M16.11 Unilateral primary osteoarthritis, right hip (principal); M87.851 Other osteonecrosis, right femur; I10 Essential (primary) hypertension; E05.00 Thyrotoxicosis with diffuse goiter without thyrotoxic crisis or storm; M81.0 Age-related osteoporosis without current pathological fracture
CPT/HCPCS: 36415; 73502; 85014; 85018; 90471; 90656; 97110; 97116; 97161; 97530; C1776; C9290; J0690; J1100; J2250; J2274; J2405; J2704; J3370; Q2038

== ENCOUNTER → 2019-11-11 15:00 | Outpatient (CLI) | payer OTHER, SELFPAY ==
[2018-05-18 15:42] VITALS: BMI 28.6
[2019-11-12 03:17] LABS: COVID19 Sendout Not Detected (Not Detect)
== END ==
PROVIDERS: Family Provider Family Medicine; Visit Provider Physician Assistant
DX: Z01.812 Encounter for preprocedural laboratory examination (principal)
CPT/HCPCS: 87635

== ENCOUNTER 2019-11-14 07:25 | Day surgery (SDC) | payer OTHER, SELFPAY ==
[2018-05-18 15:42] VITALS: BMI 28.6
--- NOTE | 2019-11-11 15:23 | PM.PREOP ---
Pre-operative Note Interval Note History & Physical reviewed/Exam performed by Physician: Yes Changes to H&P: No
--- NOTE | 2019-11-11 15:24 | P.OP_ITS ---
Operative Date/Time/Diagnoses Date of procedure: 11/14/19 Time of procedure: 08:45 Procedure & Clinicians Procedure: Preoperative diagnoses: 1. 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 2. Graves disease stable. 3. Hypothyroidism. 4. History of strabismus surgery with a right inferior rectus recession January 06, 2000. 5. History of lacrimal punctal dilation and irrigation with 3 snip procedure right eye October 07, 2015. 6. Hypertension. 7. Right total knee replacement 2017. 8. Glaucoma suspect. Postoperative diagnoses: 1. Cataract removed by phacoemulsification with placement of posterior chamber intraocular lens. Procedure: Phacoemulsification with posterior chamber intraocular lens implant Surgeon: Gladys Moreira MD Complications: None Specimen: None Implant: ZCBOO+19.5 Blood loss: None Anesthesia: Retrobulbar with monitored standby Description of procedure: Patient presents with a complaint of decreased vision due to cataract which is affecting activities of daily living. She has significant cataract which has been increased due to delayed surgery and has been waiting approval from the [employer] to proceed with surgery The patient wants surgery to improve vision. She is medically stable and has tested negative for the virus. She does not have active double vision but she does have Graves disease and treated hypothyroidism. The patient was taken to the operating room and given IV sedation. A retrobulbar block consisting of 6 cc of 2% xylocaine without epinephrine mixed half and half with 0.5% Marcaine with 1 cc of hyaluronidase added is placed between the medial and lateral 1/3 of the inferior orbital rim. The eye is manually massaged for 30 sec, prepped using Betadine solution, and draped in the usual sterile fashion. Temporal approach was made, a 1 mm side-port incision was made 90? from the proposed clear corneal incision position. Phenylephrine 1.5% mixed with 1% xylocaine 0.2 cc was placed into the anterior chamber. Viscoat followed by Lety was then placed. A 2.6 mm clear incision with a 2.6 mm blade was placed. A 360 degree capsulorrhexis style capsulotomy was then performed with a cystitome needle on a Healon. Hydrodelineation and hydrodissection were performed. The phacoemulsification unit is introduced, and sculpting notice used to groove the central lens. It is then removed in chopping mode. Epi nucleus is removed with epinuclear mode and irrigation aspiration was used to remove the peripheral cortex. The posterior capsule is polished. The intraocular lens is selected, inspected, power confirmed, and placed in the posterior chamber. The wound was stromally hydrated and tested for leaks, there was none and it was left sutureless. Vigamox 0.1 cc was placed into the anterior chamber. Kenalog 0.2 cc was placed in the superior subconjunctival space. A drop of antibiotic and was placed and the eye was patched and shielded. The patient was stable and returned to the recovery room in excellent condition. Dictated by: Gladys Moreira MD Copy to: [facility] Same procedure as scheduled: Yes
[2019-11-14] MEDS: PROPARACAINE 0.5% OPHTH SOL 2 DROPS EYE-OP (07:56)
[2019-11-14] MEDS: CATARACT EYE COMPOUND (10 DROPS/SYRINGE) 3 DROPS EYE-OP (08:00)
[2019-11-14 08:02] VITALS: BP 163/74; PULSE 73; RESP 14; TEMP 36.6; O2SAT 100
[2019-11-14 08:07] VITALS: BMI 27.0
--- NOTE | 2019-11-14 09:17 | SUR.OPER ---
Supine on eye stretcher, head on extension cradle secured with tape. Arms tucked at sides with blanket. Pillow under knees.
[2019-11-14] MEDS: ERYTHROMYCIN OPHTH 1 GM OINT 1 APPLIC EYE-RIGHT (09:18)
[2019-11-14] MEDS: LIDOCAINE 2% 4 ML, BUPIVACAINE 0.5% (PF) 4 ML, HYALURONIDASE 150 UNIT INJ (09:19)
[2019-11-14] MEDS: MOXIFLOXACIN INJ 5 MG/ML VIAL EYE-OP (09:19)
[2019-11-14] MEDS: PHENYLEPHRINE/LIDOCAINE VIAL (OR) 0.2 ML EYE-OP (09:19)
[2019-11-14] MEDS: HYALURONATE SODIUM 10 MG/ML SYRINGE INJ (09:20)
[2019-11-14] MEDS: TRIAMCINOLONE 50 MG/5 ML VIAL INJ (09:20)
[2019-11-14] MEDS: CHONDROIDTIN/SOD HYALURONATE 1.05 ML SYRINGE INTRAOCULA (09:20)
[2019-11-14] MEDS: BALANCED SALT IRRIG SOLN NO.2 500 ML, EPINEPHrine 1 MG IRR (09:21)
[2019-11-14 09:45] VITALS: BP 147/66; PULSE 62; RESP 14; TEMP 36.1; O2SAT 100
== END 2019-11-14 10:05 | disposition home or self-care (01) ==
LOC: OR 07:28
PROVIDERS: Family Provider Family Medicine; PCP Nurse Practitioner; Referring Provider Ophthalmology; Visit Provider Ophthalmology
PROC: (CPT 66984; principal; 2019-11-14 08:45)
DX: H25.811 Combined forms of age-related cataract, right eye (principal); E05.00 Thyrotoxicosis with diffuse goiter without thyrotoxic crisis or storm; E03.9 Hypothyroidism, unspecified; I10 Essential (primary) hypertension; H40.009 Preglaucoma, unspecified, unspecified eye
CPT/HCPCS: 66984; J0171; J2250; J2704; J3301; J3470

== ENCOUNTER → 2019-11-25 14:18 | Outpatient (CLI) | payer OTHER, SELFPAY ==
[2018-05-18 15:42] VITALS: BMI 28.6
[2019-11-26 08:58] LABS: COVID19 Sendout NOT DETECTED (Not Detect)
== END ==
PROVIDERS: Family Provider Family Medicine; PCP Nurse Practitioner; Visit Provider Physician Assistant
DX: Z01.812 Encounter for preprocedural laboratory examination (principal)
CPT/HCPCS: 87635

== ENCOUNTER 2019-11-28 07:23 | Day surgery (SDC) | payer OTHER, SELFPAY ==
[2018-05-18 15:42] VITALS: BMI 28.6
--- NOTE | 2019-11-25 11:24 | PM.PREOP ---
Pre-operative Note COVID-19 COVID-19 status: Negative Interval Note History & Physical reviewed/Exam performed by Physician: Yes Changes to H&P: No
--- NOTE | 2019-11-25 11:26 | PM.OP.1 ---
Operative Date/Time/Diagnoses Date of procedure: 11/28/19 Time of procedure: 08:45 Procedure & Clinicians Procedure: Preoperative diagnoses: 1. Left significant nuclear sclerotic and cortical cataract. 2. Graves disease with previous strabismus. 3. HTN Postoperative diagnoses: 1. Cataract removed by phacoemulsification with placement of posterior chamber intraocular lens. Procedure: Phacoemulsification with posterior chamber intraocular lens implant Surgeon: Gladys Moreira MD Complications: None Specimen: None Implant: ZCBOO+19.5 Blood loss: None Anesthesia: Retrobulbar with monitored standby Description of procedure: Patient presents with a complaint of decreased vision due to cataract which is affecting activities of daily living. The patient wants surgery to improve vision. She has had successful right eye surgery 2 weeks ago and was Covid 19 negative at that time. She understands extra risk of having surgery during the Covid 19 epidemic and has been retested and continues to be negative. She wishes to proceed with surgery with a distance target. The patient was taken to the operating room and given IV sedation. A retrobulbar block consisting of 6 cc of 2% xylocaine without epinephrine mixed half and half with 0.5% Marcaine with 1 cc of hyaluronidase added is placed between the medial and lateral 1/3 of the inferior orbital rim. The eye is manually massaged for 30 sec, prepped using Betadine solution, and draped in the usual sterile fashion. Temporal approach was made, a 1 mm side-port incision was made 90? from the proposed clear corneal incision position. Phenylephrine 1.5% mixed with 1% xylocaine 0.2 cc was placed into the anterior chamber. Viscoat followed by Lety was then placed. A 2.6 mm clear incision with a 2.6 mm blade was placed. A 360 degree capsulorrhexis style capsulotomy was then performed with a cystitome needle on a Healon. Hydrodelineation and hydrodissection were performed. The phacoemulsification unit is introduced, and sculpting notice used to groove the central lens. It is then removed in chopping mode. Epi nucleus is removed with epinuclear mode and irrigation aspiration was used to remove the peripheral cortex. The posterior capsule is polished. The intraocular lens is selected, inspected, power confirmed, and placed in the posterior chamber. The wound was stromally hydrated and tested for leaks, there was none and it was left sutureless. Vigamox 0.1 cc was placed into the anterior chamber. Kenalog 0.2 cc was placed in the superior subconjunctival space. A drop of antibiotic and was placed and the eye was patched and shielded. The patient was stable and returned to the recovery room in excellent condition. Dictated by: Gladys Moreira MD Copy to: [facility] Same procedure as scheduled: Yes
[2019-11-28] MEDS: PROPARACAINE 0.5% OPHTH SOL 2 DROPS EYE-OP (07:40)
[2019-11-28] MEDS: CATARACT EYE COMPOUND (10 DROPS/SYRINGE) 3 DROPS EYE-OP (07:42)
[2019-11-28 07:43] VITALS: BP 155/74; PULSE 80; RESP 18; TEMP 36.2; O2SAT 100; BMI 25.8
[2019-11-28] MEDS: CHONDROIDTIN/SOD HYALURONATE 1.05 ML SYRINGE INTRAOCULA (09:04)
[2019-11-28] MEDS: HYALURONATE SODIUM 10 MG/ML SYRINGE INJ (09:04)
[2019-11-28] MEDS: ERYTHROMYCIN OPHTH 1 GM OINT 1 APPLIC EYE-LEFT (09:04)
[2019-11-28] MEDS: PHENYLEPHRINE/LIDOCAINE VIAL (OR) 0.2 ML EYE-OP (09:05)
[2019-11-28] MEDS: BALANCED SALT IRRIG SOLN NO.2 500 ML, EPINEPHrine 1 MG IRR (09:05)
[2019-11-28] MEDS: LIDOCAINE 2% 4 ML, BUPIVACAINE 0.5% (PF) 4 ML, HYALURONIDASE 150 UNIT INJ (09:06)
[2019-11-28] MEDS: MOXIFLOXACIN INJ 5 MG/ML VIAL EYE-OP (09:07)
[2019-11-28] MEDS: TRIAMCINOLONE 50 MG/5 ML VIAL INJ (09:07)
[2019-11-28 09:26] VITALS: BP 141/66; PULSE 62; RESP 14; TEMP 36.8; O2SAT 62
--- NOTE | 2019-11-28 10:15 | SUR.PHASEII ---
1033 Pt delayed in departure, was unable to contact spouse via phone. [employer]er took pt out and found him.
== END 2019-11-28 09:50 | disposition home or self-care (01) ==
LOC: OR 07:25
PROVIDERS: Family Provider Family Medicine; PCP Nurse Practitioner; Referring Provider Nurse Practitioner; Visit Provider Ophthalmology
PROC: (CPT 66984; principal; 2019-11-28 08:45)
DX: H25.812 Combined forms of age-related cataract, left eye (principal); E05.00 Thyrotoxicosis with diffuse goiter without thyrotoxic crisis or storm; I10 Essential (primary) hypertension; K21.9 Gastro-esophageal reflux disease without esophagitis
CPT/HCPCS: 66984; J0171; J2250; J2704; J3301; J3470

== ENCOUNTER → 2020-10-08 10:06 | Outpatient (CLI) | payer OTHER, SELFPAY ==
[2018-05-18 15:42] VITALS: BMI 28.6
[2020-10-08 10:55] LABS: COVID19 -Nasal RAPID Negative (Negative)
== END ==
PROVIDERS: Family Provider Family Medicine; PCP Nurse Practitioner; Visit Provider Student in an Organized Health Care Education/Training Program
DX: Z01.812 Encounter for preprocedural laboratory examination (principal); Z20.822 Contact with and (suspected) exposure to COVID-19
CPT/HCPCS: 87635

== ENCOUNTER → 2020-10-10 13:25 | Outpatient (CLI) | payer OTHER, SELFPAY ==
[2018-05-18 15:42] VITALS: BMI 28.6
--- NOTE | 2020-10-10 | DI.ECHO.S_ITS ---
[facility] +---------+ : : [address] : : : : [place]. : : : : [place], : : : : [place] [id number] : : : : Phone: [phone] [id number] Echocardiogram Report + + :Name: SALEEM REYNA Study Date: 10/10/2020 Height: 67 in : :[facility] ReadingLocation: Weight: 165 lb : : Gender: Female BSA: 1.9 m2 : :: 1940 Age: 80 yrs BP: 189/92 mmHg: :Reason For Study: Arrhythmia : :Ordering Physician: MARCEL : :RENATA Performed By: Peter Soriano : :Referring: RENATA ROD : + + Interpretation Summary Left ventricular systolic function is normal with an estimated ejection fraction of 55 to 60% without any focal wall motion abnormality. The left ventricle is borderline enlarged with an end-diastolic volume of 138 mL, but normal wall thickness. Diastolic function is challenging to assess but there is no compelling evidence for significantly increased filling pressures. The right ventricle appears normal in size and systolic function. Right ventricular systolic pressure cannot be estimated but CVP is likely around 3 mmHg. Both atria are normal in size. The aortic valve is mildly sclerotic without stenosis. There is mild aortic regurgitation but no other significant valvular abnormality. Procedure: A two-dimensional transthoracic echocardiogram with color flow and Doppler was performed. The study quality was technically adequate. There is no prior echocardiogram noted for this patient. A contrast injection of Definity was performed to improve assessment of LV function. Left Ventricle: The left ventricle is borderline dilated. The estimated left ventricular end diastolic volume is 138 ml. There is normal left ventricular wall thickness. Left ventricular systolic function appears normal without focal wall motion abnormalities. The ejection fraction is estimated to be 55- 60%. Diastolic function could not be accurately assessed due to contradictory data. Right Ventricle: The right ventricle is normal in size and function. Atria: Both atria are normal in size. There is no Doppler evidence for an interatrial shunt. Mitral Valve: There is mild mitral annular calcification. The mitral valve leaflets appear normal. There is no evidence of stenosis, fluttering, or prolapse. There is no mitral regurgitation noted. Aortic Valve: The aortic valve is mildly calcified. There is minimally reduced leaflet mobility. There is mild aortic regurgitation. Tricuspid Valve: The tricuspid valve is normal in structure and function. No tricuspid regurgitation. Pulmonary artery pressures cannot be estimated because of the lack of a measurable TR jet velocity but the IVC suggests a CVP of around 3 mmHg. Pulmonic Valve: The pulmonic valve is not well visualized. There is no pulmonic valvular regurgitation. There is no other significant valvular heart disease. Great Vessels: The aortic root is normal size. The dimensions of the ascending aorta are normal. The IVC is of normal diameter and collapses greater than 50% with a sniff. This suggests a low right atrial pressure of 3 mm Hg. Pericardium/ Pleura There is no pericardial effusion. There is no pleural effusion. MMode/2D Measurements & Calculations LVIDd: 5.0 cm LVOT diam: 2.0 cm LVIDs: 3.6 cm Ao root diam: 3.2 cm IVSd: 1.0 cm asc Aorta Diam: 3.3 cm LVPWd: 0.92 cm LV bonilla. diameter/BSA (cm/m^2): 2.7 LV sys. diameter/BSA (cm/m^2): 1.9 FS: 27.1 % LA A2 area: 16.6 cm2 RA long axis: 4.6 cm LA A4 area: 18.4 cm2 RA area: 13.2 cm2 LA length (vol): 5.5 cm RA vol: 32.1 ml LA vol: 46.9 ml RA : 17.2 ml/m2 LA vol index: 25.2 ml/m2 TAPSE: 2.8 cm IVC diam: 1.8 cm Doppler Measurements & Calculations Ao V2 max: 169.4 cm/sec LVOT Max Juan: 95.9 cm/sec Ao V2 mean: 113.0 cm/sec LV V1 max P.7 mmHg Ao V2 VTI: 35.3 cm LV V1 VTI: 23.8 cm Ao max P.5 mmHg Ao mean P.9 mmHg DEZ(I,D): 2.2 cm2 MV E max juan: 63.1 cm/sec DEZ(V,D): 1.8 cm2 MV A max juan: 124.3 cm/sec DEZ indexed to BSA (cm^2/m^2): 1.2 MV E/A: 0.51 sev ratio: 0.68 Med Peak E' Juan: 5.1 cm/sec E/E' med: 12.3 Lat Peak E' Juan: 6.2 cm/sec E/E' lat: 10.2 E/e' average: 11.2 MV dec time: 0.38 sec PA pr(Accel): 45.6 mmHg SVLVOT): 76.7 ml Reading Physician:03:01 PM
--- NOTE | 2020-10-10 | DI.NM.S_ITS ---
PROCEDURE: NM EXERCISE TREADMILL NON NUC COMPARISON: None. INDICATIONS: VENTRICULAR PREMATURE DEPOLALIZATION FINDINGS: The patient exercised for 3 minutes, reachign 104% of maximum predicted heart rate. Reduced exercise capacity (4.6 METs, STEF +37%). Mild horizontal ST depressions in the inferior and anterolateral leads. Occasional PVCs. No angina during the study. IMPRESSION: Abnormal treadmill stress test with mild horizontal ST depressions in the inferior and anterolateral leads. No angina. Moderately reduced exercise tolerance. Recommend treadmill nuclear stress test for further evaluation (i.e to distinguish between true abnormal vs false abnormal study). Dictated by: Mariajose Lyle MD on 10/10/2020 at 17:37 Approved by: Mariajose Lyle MD on 10/10/2020 at 17:40
== END ==
PROVIDERS: Family Provider Family Medicine; PCP Nurse Practitioner; Referring Provider Nurse Practitioner; Visit Provider Nurse Practitioner
DX: I49.3 Ventricular premature depolarization (principal); I35.1 Nonrheumatic aortic (valve) insufficiency; R94.39 Abnormal result of other cardiovascular function study
CPT/HCPCS: 93017; C8929; Q9957